=== PATIENT | female | born 1985 | race Caucasian/White ===

== ENCOUNTER → 2019-11-17 09:36 | Outpatient (CLI) | payer OTHER, SELFPAY ==
--- NOTE | ~2019-11-17 | XR_ITS ---
EXAMINATION: XR chest 2V EXAM DATE: 11/17/2019 10:11 INDICATION: Polyarthralgia. TECHNIQUE: Frontal and lateral projections of the chest obtained and reviewed. There is no prior luz dy for comparison. FINDINGS: The lungs are clear. There are no pleural effusions. The cardiomediastinal silhouette is within normal limits. There is no pneumothorax suspected. The bones and soft tissues are unremarkab le. IMPRESSION: Unremarkable chest x-ray exam. Reviewed, dictated and finalized at location B. T MAKER
--- NOTE | ~2019-11-17 | XR_ITS ---
EXAMINATION: XR sacroiliac joints min 3V EXAM DATE: 11/17/2019 10:11 INDICATION: Sacroiliac joint pain. TECHNIQUE: Frontal, bilateral oblique projections of the sacroiliac joints. There is no prior study for comparison. FINDINGS: There are no bony erosions identified. No sacroiliac joint sclerosis or fusion. Sacrum, sa croiliac joints, sacral arcuate lines are intact. The soft tissue is unremarkable. IMPRESSION: Unremarkable XR sacroiliac joints min 3V exam. Reviewed, dictated and finalized at location B. ING MILL OPERATOR
--- NOTE | ~2019-11-17 | XR_ITS ---
EXAMINATION: XR foot LT 2V EXAM DATE: 11/17/2019 10:11 INDICATION: Polyarthralgia. TECHNIQUE: Left foot frontal and lateral projections. There is no prior study for comparison. FINDINGS: There are no bony erosions identified. There are no acute left foot fractures or dislocati ons identified. There is no subcutaneous gas. The soft tissue is unremarkable. There are no radio paque foreign bodies. IMPRESSION: 1. Unremarkable XR foot LT 2V exam. Reviewed, dictated and finalized at location B. NE PUBLISHER
--- NOTE | ~2019-11-17 | XR_ITS ---
EXAMINATION: XR foot RT 2V EXAM DATE: 11/17/2019 10:11 INDICATION: Polyarthralgia. TECHNIQUE: Right foot frontal and lateral projections. There is no prior study for comparison. FINDINGS: There are no bony erosions identified. There are no acute right foot fractures or dislocat ions identified. There is no subcutaneous gas. The soft tissue is unremarkable. There are no radi opaque foreign bodies. IMPRESSION: 1. Unremarkable XR foot RT 2V exam. Reviewed, dictated and finalized at location B. MOBILE [employer] PROPERTY UNDERWRITER
--- NOTE | ~2019-11-17 | XR_ITS ---
EXAMINATION: XR hand LT 2V EXAM DATE: 11/17/2019 10:11 INDICATION: Polyarthralgia. TECHNIQUE: Left hand frontal and lateral projections. There is no prior study for comparison. FINDINGS: There is left ulnar minus variance. There are no bony erosions identified. There are no ac lorna fractures or dislocations identified. There is no subcutaneous gas. The soft tissue is unremark able. There are no radiopaque foreign bodies. IMPRESSION: Moderate left ulnar minus variance. Reviewed, dictated and finalized at location B. [employer]
--- NOTE | ~2019-11-17 | XR_ITS ---
EXAMINATION: XR hand RT 2V EXAM DATE: 11/17/2019 10:11 INDICATION: Polyarthralgia. TECHNIQUE: Right hand frontal and lateral projections. There is no prior study for comparison. FINDINGS: There is minimal right-sided ulnar minus variance. Scapholunate joint space maintained. Th ere are no bony erosions identified. There are no acute fractures or dislocations identified. There is no subcutaneous gas. The soft tissue is unremarkable. There are no radiopaque foreign bodies. IMPRESSION: Minimal right ulnar minus variance. Reviewed, dictated and finalized at location B. ING MACHINE OPERATOR
== END ==
PROVIDERS: Visit Provider Physician Assistant
DX: M25.50 Pain in unspecified joint (principal)
CPT/HCPCS: 71046; 72202; 73120; 73620

== ENCOUNTER → 2019-12-07 08:21 | Outpatient (CLI) | payer OTHER, SELFPAY ==
--- NOTE | ~2019-12-07 | US_ITS ---
US right upper quadrant DATE: 12/07/2019 08:56 INDICATION: Abnormal hepatic function tests TECHNIQUE: Real-time imaging of the right upper quadrant, Doppler analysis COMPARISON: None FINDINGS: Hepatic steatosis. There is an approximately 12 mm indeterminate right hepatic hypoattenuating lesion. The margins are n ot sharply defined. There appears to be some internal vascularity on color flow imaging. Further eval uation with MRI is suggested. Normal hepatic portal venous flow direction. No pancreatic mass lesion or pancreatic duct dilatation is evident. The gallbladder is present. No gallstones or gallbladder wall thickening or abnormal pericholecystic fluid collection is evident. Negative sonographic Lockhart's sign. The common bile duct measures approximately 4-7.6 mm dimension. IMPRESSION: 1.2 cm indeterminate right hepatic lesions; consider magnetic resonance imaging for furth er evaluation Reviewed, dictated and finalized at Location A. Reviewed, dictated and finalized at location B. OR PODIATRIC MEDICINE IMPRESSION: 1.2 cm indeterminate right hepatic lesions; consider magnetic reson ance imaging for further evaluation
== END ==
PROVIDERS: Visit Provider Physician Assistant Medical
DX: R79.89 Other specified abnormal findings of blood chemistry (principal); K76.9 Liver disease, unspecified
CPT/HCPCS: 76705

== ENCOUNTER → 2019-12-23 07:07 | Outpatient (CLI) | payer OTHER, SELFPAY ==
--- NOTE | ~2019-12-23 | MR_ITS ---
EXAMINATION: MR abdomen wo con DATE: 12/23/2019 07:55 INDICATION: Abnormal liver function tests. Liver lesion in the right hepatic lobe TECHNIQUE: Magnetic resonance imaging (MRI) of the abdomen was performed without intravenous contrast . Sequences included coronal T2-weighted SS-FSE, coronal and axial FS 2D-FIESTA, axial STIR FSE, axi al T2-weighted SS-FSE, axial T2-weighted FS SS-FSE, axial diffusion-weighted SE, axial dual-echo T1-w eighted FSPGR, and axial and coronal T1-weighted LAVA. COMPARISON: Ultrasound dated 12/07/2019 FINDINGS: Heart size is normal. No pericardial or pleural effusion. Diffuse hepatic steatosis with signal dropo ut on opposed phase images. 1.5 cm lesion with relatively prominent increased T2 signal but less than fluid intensity and which is T1 hypointense to the surrounding liver on the in phase images and hypo intense on the fat-saturated LAVA images. Intraluminal signal gradient within the otherwise normal-ap pearing gallbladder likely representing dependently layering sludge. No evident low signal intensity gallstones identified. No intra or extra hepatic biliary ductal dilation. Spleen, pancreas, bilateral adrenal glands and kidneys are normal. Visualized portions of the bowels are unremarkable. No pathol ogically enlarged abdominal lymphadenopathy. Mild thoracolumbar spondylosis. No pathologic marrow rep lacing process. IMPRESSION: 1. Nonspecific 1.5 cm T2 hyperintense lesion in the right hepatic lobe with appearance and signal rita racteristics most consistent with and also statistically most likely to represent a hemangioma althou gh definitive determination is precluded by the absence of intravenous contrast. Reviewed, dictated and finalized at location A. 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 Nonspecific 1.5 cm T2 hyperintense lesion in the right hepatic lobe with noel earance and signal characteristics most consistent with and also statistically most likely to represent a hemangioma although definitive determination is prec luded by the absence of intravenous contrast.
== END ==
PROVIDERS: Visit Provider Physician Assistant Medical
DX: R94.5 Abnormal results of liver function studies (principal); K76.9 Liver disease, unspecified
CPT/HCPCS: 74181

== ENCOUNTER → 2021-01-12 16:06 | Outpatient (CLI) | payer OTHER, SELFPAY ==
--- NOTE | ~2021-01-12 | XR_ITS ---
XR wrist RT 2V DATE: 01/12/2021 17:12 INDICATION: Right wrist pain TECHNIQUE: AP and lateral views COMPARISON: None FINDINGS: No fracture, dislocation, joint space narrowing, erosive change, chondrocalcinosis, periost eal reaction or bone destruction. IMPRESSION: Normal Reviewed, dictated and finalized at location B. IMPRESSION: Normal
--- NOTE | ~2021-01-12 | XR_ITS ---
XR sacroiliac joints min 3V DATE: 01/12/2021 17:12 INDICATION: Sacroiliac pain TECHNIQUE: AP and bilateral oblique views COMPARISON: None FINDINGS: No fracture or bone destruction. Normal alignment at the pubic symphysis and sacroiliac rodger nts. IMPRESSION: Negative Reviewed, dictated and finalized at Location A. Reviewed, dictated and finalized at location B. IMPRESSION: Negative
--- NOTE | ~2021-01-12 | XR_ITS ---
XR foot LT 2V DATE: 01/12/2021 17:13 INDICATION: Left foot pain TECHNIQUE: AP and lateral views COMPARISON: 11/17/2019 left foot FINDINGS: No calcaneal enthesopathy. No fracture, dislocation, periosteal reaction or bone destructio n or erosive change. Joint spaces are preserved. IMPRESSION: Negative Reviewed, dictated and finalized at location B. IMPRESSION: Negative
--- NOTE | ~2021-01-12 | XR_ITS ---
XR wrist LT 2V DATE: 01/12/2021 17:12 INDICATION: Left wrist pain TECHNIQUE: AP and lateral views COMPARISON: None FINDINGS: No fracture or dislocation, periosteal reaction or bone destruction, erosive change, chondr ocalcinosis or joint space narrowing. IMPRESSION: Negative Reviewed, dictated and finalized at location B. IMPRESSION: Negative
--- NOTE | ~2021-01-12 | XR_ITS ---
XR ankle RT 2V DATE: 01/12/2021 17:12 INDICATION: Right ankle pain TECHNIQUE: AP and lateral views COMPARISON: None FINDINGS: No fracture or dislocation of the ankle or disruption of the ankle mortise. No periosteal r eaction or bone destruction. Joint spaces are well preserved. IMPRESSION: Negative Reviewed, dictated and finalized at location B. IMPRESSION: Negative
--- NOTE | ~2021-01-12 | XR_ITS ---
XR ankle LT 2V DATE: 01/12/2021 17:12 INDICATION: Left ankle pain TECHNIQUE: AP and lateral views COMPARISON: None FINDINGS: No fracture or dislocation of the ankle or disruption of the ankle mortise. No periosteal r eaction or bone destruction. Joint space is well preserved. IMPRESSION: Negative Reviewed, dictated and finalized at location B. IMPRESSION: Negative
--- NOTE | ~2021-01-12 | XR_ITS ---
XR hand RT 2V DATE: 01/12/2021 17:12 INDICATION: Right hand pain TECHNIQUE: AP and lateral views COMPARISON: None FINDINGS: No fracture or dislocation, periosteal reaction or bone destruction, joint space narrowing, erosive change or chondrocalcinosis. IMPRESSION: Negative Reviewed, dictated and finalized at location B. IMPRESSION: Negative
--- NOTE | ~2021-01-12 | XR_ITS ---
XR hand LT 2V DATE: 01/12/2021 17:13 INDICATION: Left hand pain TECHNIQUE: AP and lateral views COMPARISON: None FINDINGS: No fracture or dislocation, periosteal reaction or bone destruction, erosive change, chondr ocalcinosis, joint space narrowing or other significant bony or soft tissue abnormality. IMPRESSION: Negative Reviewed, dictated and finalized at location B. IMPRESSION: Negative
--- NOTE | ~2021-01-12 | XR_ITS ---
XR foot RT 2V DATE: 01/12/2021 17:13 INDICATION: Right foot pain TECHNIQUE: AP and lateral views COMPARISON: 11/17/2019 right foot FINDINGS: No fracture or dislocation, periosteal reaction or bone destruction, joint space narrowing or erosive change. No calcaneal enthesopathy. IMPRESSION: Negative Reviewed, dictated and finalized at location B. IMPRESSION: Negative
== END ==
PROVIDERS: Visit Provider Internal Medicine Rheumatology
DX: M25.542 Pain in joints of left hand (principal); M25.541 Pain in joints of right hand; M53.3 Sacrococcygeal disorders, not elsewhere classified; M25.572 Pain in left ankle and joints of left foot; M25.571 Pain in right ankle and joints of right foot; M25.532 Pain in left wrist; M25.531 Pain in right wrist; R53.81 Other malaise; M79.10 Myalgia, unspecified site
CPT/HCPCS: 72202; 73100; 73120; 73600; 73620